=== PATIENT | male | born 1935 | race Asian ===

== ENCOUNTER 2021-12-19 17:27 | Emergency (ER) | payer MEDICARE, OTHER ==
[~2021-12-19] VITALS: Ht 167.6 cm; Wt 50.7 kg
[~2021-12-19 17:27] MED LIST: AMLO2.5T96 PO; ASPI-1198 PO; CARV12.530 PO; DOCU240C PO; FEXO-353 PO; FURO20 PO; GLIP5TAB12 PO; PANT40TA54 PO; SIMV-46 PO; SITA50 PO; TIOT185 IH
[2021-12-19] MEDS ORDERED: SODIUM CHLORIDE 0.9% 500 ML IV ONE (18:15)
[2021-12-19] MEDS ORDERED: ONDANSETRON HCL 4 MG/2 ML VIAL IVP ONE (18:15)
[2021-12-19 18:23] LABS: BASOPHILS % (AUTO) 0.2 % (0.0-2.0); EOSINOPHILS % (AUTO) 0.6 % (1.0-6.0); HEMATOCRIT 40.6 % (41-53); HEMOGLOBIN 13.4 g/dL (13.5-17.5); MEAN CORPUSCULAR HEMOGLOBIN 31.2 pg (26.0-34.0); MEAN CORPUSCULAR HGB CONC 33.1 G/dL (31.0-37.0); MEAN CORPUSCULAR VOLUME 94 fL (80-100); MONOCYTES # (AUTO) 0.3 K/uL (0.1-1.0); MONOCYTES % (AUTO) 3.8 % (2.0-9.0); NEUTROPHILS # (AUTO) 6.2 K/uL (1.8-7.7); NEUTROPHILS % (AUTO) 82.4 % (40.0-70.0); PLATELET COUNT (AUTO) 234 K/uL (150-450); RED CELL DISTRIBUTION WIDTH 14.3 % (11.5-14.5)
[2021-12-19 18:24] LABS: COVID AG,FIA SOURCE NASAL SWAB
[2021-12-19 18:34] LABS: CALCIUM, TOTAL 9.8 mg/dL (8.8-10.5); CREATININE 1.9 mg/dL (0.60-1.30); POTASSIUM 4.5 mmol/L (3.5-5.1)
[2021-12-19 18:50] LABS: ALBUMIN 4.3 g/dL (3.4-5.0); BILIRUBIN,TOTAL 0.7 mg/dL (0.1-1.0); TOTAL PROTEIN, SERUM 8.5 g/dL (6.4-8.2)
[2021-12-19 18:51] LABS: INFLUENZA TYPE A NEGATIVE FOR TYPE A (NEGATIVE); INFLUENZA TYPE B NEGATIVE FOR TYPE B (NEGATIVE)
[2021-12-19 19:45] LABS: APPEARANCE,URINE CLEAR (CLEAR); BILIRUBIN,URINE NEGATIVE (NEGATIVE); GLUCOSE, URINE (UA) >=1000 mg/dL (NEGATIVE); KETONES,URINE TRACE mg/dL (NEGATIVE); LEUKOCYTE ESTERASE ,URINE NEGATIVE (NEGATIVE); NITRATE,URINE NEGATIVE (NEGATIVE); OCCULT BLOOD,URINE TRACE (NEGATIVE); PROTEIN,URINE NEGATIVE (NEGATIVE); SPECIFIC GRAVITIY, URINE 1.008 (1.003-1.030); UROBILINOGEN,URINE <=1.0 mg/dL (<=1.0)
[2021-12-19 20:05] LABS: BACTERIA,URINE None Seen /HPF (None Seen); RBC,URINE None Seen /HPF (0-2); WBC,URINE None Seen /HPF (0-5)
[2021-12-19 21:20] VITALS: BP 144/74
== END 2021-12-19 20:57 | disposition left against medical advice (07) ==
LOC: EMS 19:06
DX: R42 Dizziness and giddiness (principal); R11.2 Nausea with vomiting, unspecified; E11.9 Type 2 diabetes mellitus without complications; E78.00 Pure hypercholesterolemia, unspecified; I10 Essential (primary) hypertension; F17.210 Nicotine dependence, cigarettes, uncomplicated; Z98.890 Other specified postprocedural states; Z95.1 Presence of aortocoronary bypass graft; Z86.2 Personal history of diseases of the blood and blood-forming organs and certain disorders involving the immune mechanism; Z20.822 Contact with and (suspected) exposure to COVID-19
CPT/HCPCS: 99285; 96374; 71045; 87426; 80053; 81001; 82550; 82962; 83880; 84484; 85025; 87804; 36415; 93005; J2405; J7040; C9803; 96361

== ENCOUNTER 2022-05-22 09:39 | Emergency (ER) | payer MEDICARE, OTHER ==
[~2022-05-22] VITALS: Ht 165.1 cm; Wt 59.1 kg
[2022-05-22] MEDS ORDERED: APIX2.5T PO (13:13)
[2022-05-22] MEDS ORDERED: FERR325T23 PO (13:13)
[2022-05-22] MEDS ORDERED: CARV6.2534 PO (13:13)
[2022-05-22] MEDS ORDERED: FURO20TA4 PO (13:13)
[2022-05-22] MEDS ORDERED: CETI10TA58 PO (13:13)
[2022-05-22] MEDS ORDERED: LEVO75 PO (13:13)
[2022-05-22] MEDS ORDERED: EMPA10TA3 PO (13:13)
[2022-05-22] MEDS ORDERED: INSU3INS3 SQ (13:13)
[2022-05-22] MEDS ORDERED: ACET-66 PO (13:13)
[2022-05-22] MEDS ORDERED: DICLOFENAC SODIUM 1% 100 GM GEL [4GM] TP ONE (13:15)
[2022-05-22 16:00] VITALS: BP 142/77
== END 2022-05-22 16:54 | disposition home or self-care (01) ==
LOC: EMS 09:55
DX: M25.562 Pain in left knee (principal); M25.571 Pain in right ankle and joints of right foot; M79.644 Pain in right finger(s); E11.9 Type 2 diabetes mellitus without complications; E78.00 Pure hypercholesterolemia, unspecified; I10 Essential (primary) hypertension; F17.210 Nicotine dependence, cigarettes, uncomplicated; Z98.890 Other specified postprocedural states; W19.XXXA Unspecified fall, initial encounter; Y93.89 Activity, other specified; Y92.89 Other specified places as the place of occurrence of the external cause; Y99.8 Other external cause status
CPT/HCPCS: 99285; 73140-TC; 73562-TC; 73610-TC; Z7502

== ENCOUNTER 2023-04-12 07:33 | Emergency (ER) | payer MEDICARE, OTHER ==
[~2023-04-12] VITALS: Ht 165.1 cm; Wt 56.4 kg
[~2023-04-12 07:33] MED LIST changes: +ACET-66 PO; +APIX2.5T PO; -CARV12.530 PO; +CARV6.2534 PO; +CETI10TA58 PO; -DOCU240C PO; +EMPA10TA3 PO; +FERR325T23 PO; -FEXO-353 PO; -FURO20 PO; +FURO20TA4 PO; -GLIP5TAB12 PO; +GLIP5TAB16 PO; +INSU3INS3 SQ; +LEVO75 PO
[2023-04-12 07:41] VITALS: TEMP 97.7
[2023-04-12 08:45] LABS: BASOPHILS % (AUTO) 1.2 % (0.0-2.0); EOSINOPHILS % (AUTO) 2.8 % (1.0-6.0); HEMATOCRIT 41.8 % (41-53); HEMOGLOBIN 13.8 g/dL (13.5-17.5); LYMPHOCYTES # (AUTO) 1.5 K/uL (1.0-4.8); LYMPHOCYTES % (AUTO) 28.6 % (22.0-44.0); MEAN CORPUSCULAR HEMOGLOBIN 31.3 pg (26.0-34.0); MEAN CORPUSCULAR VOLUME 95 fL (80-100); MONOCYTES # (AUTO) 0.4 K/uL (0.1-1.0); MONOCYTES % (AUTO) 8.6 % (2.0-9.0); NEUTROPHILS % (AUTO) 58.8 % (40.0-70.0); PLATELET COUNT (AUTO) 223 K/uL (150-450); RED BLOOD CELL COUNT(AUTO) 4.42 MIL/uL (4.50-5.90); RED CELL DISTRIBUTION WIDTH 14.9 % (11.5-14.5); WHITE BLOOD COUNT (AUTO) 5.2 K/uL (4.5-11.0)
[2023-04-12 09:00] LABS: CALCIUM, TOTAL 9.6 mg/dL (8.8-10.5); CREATININE 1.78 mg/dL (0.60-1.30); POTASSIUM 3.9 mmol/L (3.5-5.1)
[2023-04-12] MEDS: ACETAMINOPHEN 325 MG TABLET PO ONE (09:02)
[2023-04-12 09:09] LABS: TROPONIN I-HIGH SENSITIVITY 41 ng/L (<76)
[2023-04-12 09:26] LABS: ALBUMIN 4.3 g/dL (3.4-5.0); BILIRUBIN,TOTAL 0.9 mg/dL (0.1-1.0); TOTAL PROTEIN, SERUM 7.9 g/dL (6.4-8.2)
[2023-04-12 09:26] LABS: COVID AG,FIA SOURCE NASAL SWAB
[2023-04-12 09:47] LABS: SARS-COV2 (COVID) ANTIGEN,FIA Negative (Negative)
[2023-04-12 11:04] VITALS: BP 152/86; PULSE 68; RESP 16
[2023-04-12 11:06] LABS: TROPONIN I-HIGH SENSITIVITY 43 ng/L (<76)
== END 2023-04-12 11:35 | disposition home or self-care (01) ==
LOC: EMS 07:41
DX: R42 Dizziness and giddiness (principal); F41.9 Anxiety disorder, unspecified; R07.89 Other chest pain; E11.9 Type 2 diabetes mellitus without complications; E78.00 Pure hypercholesterolemia, unspecified; I10 Essential (primary) hypertension; F17.210 Nicotine dependence, cigarettes, uncomplicated; Z98.890 Other specified postprocedural states; Z98.62 Peripheral vascular angioplasty status; Z20.822 Contact with and (suspected) exposure to COVID-19
CPT/HCPCS: 71045; 80053; 82550; 82962; 83880; 84484; 85025; 93005; 99285; 36415-L1; 36415-TC

== ENCOUNTER 2023-05-23 01:00 | Emergency (ER) | payer MEDICARE, MEDICAID ==
[~2023-05-23] VITALS: Ht 162.6 cm; Wt 56.8 kg
[~2023-05-23 01:00] MED LIST changes: -ACET-66 PO
[2023-05-23 01:13] VITALS: TEMP 97.8
[2023-05-23 03:01] LABS: GLUCOMETER DEV NAME(LOC) ERT.5; GLUCOSE,POINT OF CARE 154 MG/DL (70-110)
[2023-05-23 03:11] LABS: BASOPHILS % (AUTO) 0.3 % (0.0-2.0); EOSINOPHILS % (AUTO) 1.6 % (1.0-6.0); HEMATOCRIT 38.5 % (41-53); LYMPHOCYTES # (AUTO) 2.2 K/uL (1.0-4.8); LYMPHOCYTES % (AUTO) 24.1 % (22.0-44.0); MEAN CORPUSCULAR HEMOGLOBIN 32.3 pg (26.0-34.0); MEAN CORPUSCULAR HGB CONC 33.6 G/dL (31.0-37.0); MEAN CORPUSCULAR VOLUME 96 fL (80-100); MONOCYTES # (AUTO) 0.7 K/uL (0.1-1.0); MONOCYTES % (AUTO) 7.2 % (2.0-9.0); NEUTROPHILS # (AUTO) 6.2 K/uL (1.8-7.7); NEUTROPHILS % (AUTO) 66.8 % (40.0-70.0); PLATELET COUNT (AUTO) 216 K/uL (150-450); RED BLOOD CELL COUNT(AUTO) 4.02 MIL/uL (4.50-5.90); RED CELL DISTRIBUTION WIDTH 14.8 % (11.5-14.5); WHITE BLOOD COUNT (AUTO) 9.2 K/uL (4.5-11.0)
[2023-05-23 03:18] LABS: ANION GAP 13 mmol/L (8-16); CALCIUM, TOTAL 9.4 mg/dL (8.8-10.5); CARBON DIOXIDE 23 mmol/L (22-29); CHLORIDE 101 mmol/L (98-107); GLOMERULAR FILTR. RATE CALC 41 mL/min (>60); GLUCOSE,RANDOM 153 mg/dL (70-110); POTASSIUM 4.3 mmol/L (3.5-5.1); SODIUM SERUM 137 mmol/L (136-145); UREA NITROGEN, BLOOD 33 mg/dL (7-18)
[2023-05-23 03:24] LABS: ALANINE AMINOTRANSFERASE 21 U/L (12-78); ALBUMIN 3.8 g/dL (3.4-5.0); ALKALINE PHOSPHATASE 72 U/L (46-116); ASPARTATE AMINOTRANSFERASE 21 U/L (15-37); BILIRUBIN,TOTAL 0.7 mg/dL (0.1-1.0); LIPASE 36 U/L (16-77); TOTAL PROTEIN, SERUM 7.7 g/dL (6.4-8.2)
[2023-05-23 03:26] LABS: TROPONIN I-HIGH SENSITIVITY 44 ng/L (<76)
[2023-05-23 03:34] LABS: LACTIC ACID 3.1 mmol/L (0.4-2.0)
[2023-05-23] MEDS ORDERED: SODIUM CHLORIDE 0.9% 100 ML ONE (04:02)
[2023-05-23] MEDS: IOHEXOL 9 MG/ML 500 ML BOTTLE PO ONE ×2 (04:03→04:17)
[2023-05-23] MEDS ORDERED: IOHEXOL 350 MG/ML 100 ML VIAL ONE ×2 (04:03→06:11)
[2023-05-23] MEDS ORDERED: POLY119P3 PO (06:14)
[2023-05-23 11:09] VITALS: BP 143/71; PULSE 68; RESP 18
== END 2023-05-23 11:32 | disposition home or self-care (01) ==
LOC: EMS 01:01
DX: R10.84 Generalized abdominal pain (principal); N18.9 Chronic kidney disease, unspecified; K56.41 Fecal impaction; I12.9 Hypertensive chronic kidney disease with stage 1 through stage 4 chronic kidney disease, or unspecified chronic kidney disease; E11.22 Type 2 diabetes mellitus with diabetic chronic kidney disease; D64.9 Anemia, unspecified; E78.00 Pure hypercholesterolemia, unspecified
CPT/HCPCS: 99285; 74176; 71045; 80053; 82962; 83605; 83690; 84484; 85025; 36415; 93005; Q9967; J7050